=== PATIENT | female | born 1980 | race Caucasian/White ===

== ENCOUNTER 2020-04-26 12:44 | Emergency (ER) | payer OTHER ==
[2020-04-26 13:02] VITALS: BP 119/84; PULSE 77; BMI 23.4
[2020-04-26 13:05] VITALS: TEMP 97.9
[2020-04-26] MEDS ORDERED: ACETAMINOPHEN 500 MG TABLET (FP) PO ONE (13:31)
[2020-04-26] MEDS ORDERED: ACETAMINOPHEN 500 MG TABLET (FP) ONE (13:34)
[2020-04-26 14:19] LABS: PH,URINE 6.5 (5.0-8.0); URINE APPEARANCE CLEAR; URINE BILIRUBIN NEGATIVE (NEGATIVE); URINE COLOR YELLOW; URINE GLUCOSE (UA) NEGATIVE (NEGATIVE); URINE KETONE NEGATIVE (NEGATIVE); URINE LEUK ESTERASE 2+ (NEGATIVE); URINE NITRITE NEGATIVE (NEGATIVE); URINE PROTEIN NEGATIVE (NEGATIVE); URINE UROBILINOGEN 0.2 mg/dL (0.2-1.0)
[2020-04-26 14:52] LABS: HCG,QUALITATIVE URINE Negative
== END 2020-04-26 15:44 | disposition home or self-care (01) ==
LOC: JERFT 12:44 → JER 12:44 → JERFT 15:44
DX: N30.90 Cystitis, unspecified without hematuria (principal)
CPT/HCPCS: 36415; 81003; 84703; 87077; 87086; 87491; 87591; 99284-25